=== PATIENT | female | born 1940 | race Caucasian/White ===

== ENCOUNTER 2017-10-13 09:30 | Inpatient (IN) | payer MEDICARE, BC ==
[2017-10-16] MEDS ORDERED: ACETAMINOPHEN 1,000 MG/100 ML BTL IV ONE (06:00)
[2017-10-16] MEDS ORDERED: VANCOMYCIN HCL 1,000 MG in DEXTROSE 5 % IN WATER 250 ML IVPB ONE ×2 (06:00)
[2017-10-16] MEDS ORDERED: FAMOTIDINE 20MG TABLET PO ONE (06:00)
[2017-10-16] MEDS ORDERED: MECLIZINE 25 MG TABLET PO ONE (06:00)
[2017-10-16] MEDS ORDERED: CELECOXIB 100 MG CAPSULE PO ONE (06:00)
[2017-10-16] MEDS ORDERED: METOCLOPRAMIDE 10 MG TABLET PO ONE (06:00)
[2017-11-20] MEDS ORDERED: METOCLOPRAMIDE 10 MG TABLET PO ONE (06:00)
[2017-11-20] MEDS ORDERED: CELECOXIB 100 MG CAPSULE PO ONE (06:00)
[2017-11-20] MEDS ORDERED: FAMOTIDINE 20MG TABLET PO ONE (06:00)
[2017-11-20] MEDS ORDERED: MECLIZINE 25 MG TABLET PO ONE (06:00)
[2017-11-20] MEDS ORDERED: CEFAZOLIN 2 Gram 2 GM/50 ML BAG IVPB PRN (06:00)
[2017-11-20] MEDS ORDERED: VANCOMYCIN HCL 1,000 MG in DEXTROSE 5 % IN WATER 250 ML IVPB ONE ×2 (06:00)
[2017-11-20] MEDS ORDERED: ACETAMINOPHEN 1,000 MG/100 ML BTL IV ONE (06:00)
[2017-11-20] MEDS ORDERED: DIPHENHYDRAMINE HCL 25 MG CAPSULE PO PRN (12:05)
[2017-11-20] MEDS ORDERED: HYDROCODONE/APAP 7.5/325MG TABLET PO PRN (12:05)
[2017-11-20] MEDS ORDERED: HYDROMORPHONE HCL 2 MG/ML VIAL IM PRN ×2 (12:05)
[2017-11-20] MEDS ORDERED: AL HYDROX/MAG HYDROX 30ML UD PO PRN (12:05)
[2017-11-20] MEDS ORDERED: ZOLPIDEM TARTRATE 5 MG TABLET PO PRN (12:05)
[2017-11-20] MEDS ORDERED: BISACODYL 10 MG SUPP RC PRN (12:05)
[2017-11-20] MEDS ORDERED: PROMETHAZINE HCL 12.5 MG in 0.9 % SODIUM CHLORIDE 100ML 50 ML IVPB PRN (12:05)
[2017-11-20] MEDS ORDERED: NALOXONE 0.4 MG/1 ML VIAL IVP PRN (12:05)
[2017-11-20] MEDS ORDERED: METOCLOPRAMIDE HCL 10 MG/2 ML VIAL IVP PRN (12:05)
[2017-11-20] MEDS ORDERED: TRAMADOL HCL 50 MG TABLET PO PRN ×2 (12:05)
[2017-11-20] MEDS ORDERED: MAGNESIUM HYDROXIDE 30 ML UDC PO PRN (12:05)
[2017-11-20] MEDS ORDERED: ACETAMINOPHEN W/ CODEINE 300MG/30MG TABLET PO PRN ×2 (12:05)
[2017-11-20] MEDS ORDERED: ACETAMINOPHEN 325 MG TAB PO PRN (12:05)
[2017-11-20] MEDS ORDERED: ONDANSETRON HCL IV 4 MG/2 ML VIAL IVP PRN (12:05)
[2017-11-20] MEDS ORDERED: ACETAMINOPHEN W/ CODEINE 300MG/60MG TABLET PO PRN ×2 (12:05)
[2017-11-20] MEDS ORDERED: KETOROLAC 30 MG/ML VIAL IVP PRN ×2 (12:05)
[2017-11-20] MEDS ORDERED: HYDROCODONE/APAP 5/325MG TABLET PO PRN ×2 (12:05)
[2017-11-20 13:32] LABS: ABO GROUP A; ANTIBODY SCREEN NEGATIVE (NEGATIVE); RH TYPE POSITIVE
[2017-11-20] MEDS ORDERED: BUPIVACAINE 0.5% W/EPI MPF 30 ML VIAL IVP ONE (14:00)
[2017-11-20] MEDS ORDERED: DESFLURANE 240 ML BTL INH ONE (14:00)
[2017-11-20] MEDS ORDERED: EPHEDRINE SULFATE 50 MG/ML ML IV ONE (14:00)
[2017-11-20] MEDS ORDERED: PHENYLEPHRINE HCL 10 MG/ML VIAL IVP ONE (14:00)
[2017-11-20] MEDS ORDERED: VANCOMYCIN HCL 1 GM VIAL IVPB ONE ×2 (14:00)
[2017-11-20] MEDS ORDERED: TRANEXAMIC ACID 1,000 MG/10 ML ML IV ONE ×2 (14:00)
[2017-11-20] MEDS ORDERED: PROPOFOL 10 MG/ML VIAL IV ONE (14:00)
[2017-11-20] MEDS ORDERED: LIDOCAINE 2% MDV (20MG/ML) 20ML VIAL IV ONE (14:00)
[2017-11-20] MEDS ORDERED: BUPIVACAINE LIPOSOME 266MG/20ML VIAL IV ONE (14:00)
[2017-11-20] MEDS ORDERED: FENTANYL PF 100MCG/2ML VIAL IV ONE (14:00)
[2017-11-20] MEDS ORDERED: PNEUM 13-VAL/PF 0.5 ML IM ONE (14:09)
[2017-11-20] MEDS ORDERED: ALBUTEROL HFA 8 GM INHALER INH PRN (15:29)
[2017-11-20] MEDS ORDERED: LORAZEPAM 0.5 MG TABLET PO PRN (15:30)
[2017-11-20] MEDS: HYDROCODONE/APAP 7.5/325MG TABLET PO PRN (16:41)
[2017-11-20] MEDS: DOCUSATE SODIUM 100 MG CAPSULE PO SCH (21:49)
[2017-11-20] MEDS: FERROUS SULFATE 325 MG TAB PO SCH (21:50)
[2017-11-20] MEDS ORDERED: PANTOPRAZOLE SODIUM 40 MG TABLET PO SCH (22:00)
[2017-11-20] MEDS ORDERED: DULOXETINE HCL 30 MG CAPSULE.DR PO SCH (22:00)
[2017-11-20] MEDS ORDERED: TRAZODONE 50 MG TABLET PO SCH (22:00)
[2017-11-20] MEDS: VANCOMYCIN HCL 1,000 MG in DEXTROSE 5 % IN WATER 250 ML IVPB SCH ×2 (22:43)
[2017-11-20] MEDS: DEXTROSE 5 % AND 0.9 % NACL 1,000 ML IV PRN (22:43)
[2017-11-21] MEDS: HYDROCODONE/APAP 7.5/325MG TABLET PO PRN ×2 (03:27→11:30)
[2017-11-21] MEDS: DEXTROSE 5 % AND 0.9 % NACL 1,000 ML IV PRN (05:48)
[2017-11-21 06:58] LABS: HEMATOCRIT 28.4 % (35.0-47.0); HEMOGLOBIN 8.4 gm/dl (11.6-16.0)
[2017-11-21] MEDS: FERROUS SULFATE 325 MG TAB PO SCH (09:30)
[2017-11-21] MEDS: DOCUSATE SODIUM 100 MG CAPSULE PO SCH (09:30)
[2017-11-21] MEDS ORDERED: RIVAROXABAN 20 MG TABLET PO SCH (10:00)
[2017-11-21] MEDS ORDERED: RIVAROXABAN 10 MG TABLET PO SCH (10:00)
[2017-11-21] MEDS ORDERED: DILTIAZEM 180MG CR CAPSULE PO SCH (10:00)
[2017-11-21] MEDS ORDERED: ATORVASTATIN 20 MG TABLET PO SCH (10:00)
[2017-11-21] MEDS ORDERED: CELECOXIB 100 MG CAPSULE PO SCH (10:00)
[2017-11-21] MEDS ORDERED: BREO (FLUTICASONE/VILANTEROL) 200MCG/25MCG INHALER INH SCH (10:00)
--- NOTE | 2017-11-21 10:19 | Rehab Evaluation ---
Patient Information - Patient Information Diagnosis: Right Hip OA Ordered Treatment: PT Evaluate and Treat Status: Initial Evaluation Surgery: Yes (R PIEDAD) Date of Surgery: 11/20/17 Past Medical/Surgical Hx: PAST MEDICAL/SURGICAL HISTORY Surgery to Affected Area? Yes Recent Surgery? Past Surgical History ORIF right hip kidney stone retreival c scope heart cath PMH - Respiratory Hx Respiratory Disorders Yes Hx Bronchitis Yes Hx Chronic Obstructive Yes: has inhaler nebulizer as needed Pulmonary Disease (COPD) Hx Dyspnea Yes Hx Pneumonia Yes Hx of SOB Yes Hx of Oxygen Therapy Yes: uses at night and occassionally during the day PMH - Cardiovascular Hx Cardiovascular Disorders Yes Hx Abnormal EKG Yes Hx Cardiac Catheterization Yes: 2017 possibly Hx Edema Yes Hx Hypertension Yes: on meds fair control Hx Irregular Heartbeat Yes: a fib Hx Pacemaker/Defibrillator Yes: pacemaker 10-16-17 Hx Rheumatic Fever Yes: as a child Exercise Tolerance Poor PMH - Neuro Hx Neurological Disorders Yes Hx Dizziness Yes: occassionally Hx Neuropathy Yes: right hand PMH - GI Hx Gastrointestinal Disorders Yes Hx Diverticulitis Yes Hx Gastroesophageal Reflux Yes PMH - Hx Genitourinary Disorders Yes Hx Kidney Stones Yes: hx of multiple PMH - Endocrine Hx Endocrine Disorders No PMH - Musculoskeletal Hx Musculoskeletal Disorders Yes Hx Arthritis Yes Hx Osteoporosis Yes PMH - Psych Hx Psychiatric Problems Yes Hx Anxiety Yes Hx Depression Yes PMH - Hematology/Oncology Hx Hematology/Oncology Yes Disorders Hx Bruising Yes: bruises easily on Xarelto Hx Cancer Yes: skin Premorbid Status: Detail (Patient was previously IND with all mobility and transfers) Social History: Detail (Patient lives in a one story home with her spouse. Patient has 2 steps to enter the home with a hand rail on the left side. She has a walk in shower with grab bars, and an elevated toilet with grab bars. She currently own a 4 wheeled walker and a cane.) Precautions: [place], Fall, Other (WBAT on R LE.) - Time With Patient Total Time Spent With Patient (Min): 30 Treatment Procedures: Detail (Initial evaluation, gait training, and exercise education.) Subjective Information - Subjective Information Per Patient (Patient was lying in bed upon arrival. Patient reports R hip and R heel pain but did not rate the pain on a 0-10 scale.) Objective Data - Pain Pain Present: Yes - Mental Status Patient Orientation: Oriented x3 - Visual Perception Appears within normal limits for therapeutic activities - ROM Not within normal limits (Patients R LE ROM is limited due to status post- surgery.) - Strength/Tone Not within normal limits (Limited due to status post-surgery. Strength is functional during gait.) - Bed Mobility Independent (Patient was IND with supine to and from sitting.) - Transfers Independent (Patient was IND with sit to stand and toilet transfers with elevated seat and use of grab bars.) - Balance Balance Sitting: Good Balance Standing: Good - Sensation Intact - Gait Detail (Patient ambulated 50' with a 4 wheeled walker and SBA with 2 standing rest breaks due to shortness of breath.) Therapy Assessment - Therapy Assessment Detail (Patient was IND with all mobility and transfers with SBA for safety. Feel patient will progress well with mobility with continued home PT.) Patient Education - Patient Education Teaching Topic: Exercise/Activity (Ankle pumps, glut sets, heel slides, quad sets, hamstring sets, and assissted supine hip abduction) Response: Return Demonstration, Verbalize Understanding Teaching Method: Demonstration, Audiovisual Teaching Recipient: Patient Barriers To Learning: Age Related Problem List - Problem List Physical Therapy Problem List: Detail (1) Limited R hip ROM 2) Limited R hip strength) Goals - Goals Physical Therapy Goals: 1) Patient will ambulate a flight of 3 stairs with a cane and hand rail with supervision assist. Prognosis - Prognosis Good Plan - Plan Physical Therapy Plan: Patient will be seen 1-2 more times for stair training. Patient will then be discharged to home PT.
[2017-11-21] MEDS: VANCOMYCIN HCL 1,000 MG in DEXTROSE 5 % IN WATER 250 ML IVPB SCH ×2 (11:26)
--- NOTE | 2017-11-21 13:32 | Physical Therapy Tx Note ---
Physical Therapy Tx Note - Treatment Note Tolerated: Good Total Time Spent With Patient: 30 Physical Therapy Tx Note: Detail (Patient was lying in bed upon arrival. Patient reported 8/10 R hip pain. Patient performed supine to sit transfer IND with a leg service officer. Patient ambulated 50' with a 4 wheeled walker and SBA for safety with 1 standing rest break due to shortness of breath. Patient ambulated a flight of 3 stairs with a standard cane and hand rail with SBA for safety. Patient reported feeling dizzy while descending the stairs and required a sitting rest break before going back up the steps. Patient was left lying in bed with call light in reach.) Physical Therapy Problem List: Detail (1) Limited R hip ROM 2) Limited R hip strength) Physical Therapy Goals: 1) Patient will ambulate a flight of 3 stairs with a cane and hand rail with supervision assist. (Goal Met) Prognosis: Good Physical Therapy Plan: Patient has met all IP PT goal and be discharged to home PT.
--- NOTE | 2017-11-21 15:21 | Rehab Evaluation ---
Patient Information - Patient Information Diagnosis: Right Hip OA Ordered Treatment: OT Evaluate and Treat Status: Initial Evaluation Surgery: Yes (R PIEDAD) Date of Surgery: 11/20/17 Past Medical/Surgical Hx: PAST MEDICAL/SURGICAL HISTORY Surgery to Affected Area? Yes Recent Surgery? Past Surgical History ORIF right hip kidney stone retreival c scope heart cath PMH - Respiratory Hx Respiratory Disorders Yes Hx Bronchitis Yes Hx Chronic Obstructive Yes: has inhaler nebulizer as needed Pulmonary Disease (COPD) Hx Dyspnea Yes Hx Pneumonia Yes Hx of SOB Yes Hx of Oxygen Therapy Yes: uses at night and occassionally during the day PMH - Cardiovascular Hx Cardiovascular Disorders Yes Hx Abnormal EKG Yes Hx Cardiac Catheterization Yes: 2017 possibly Hx Edema Yes Hx Hypertension Yes: on meds fair control Hx Irregular Heartbeat Yes: a fib Hx Pacemaker/Defibrillator Yes: pacemaker 10-16-17 Hx Rheumatic Fever Yes: as a child Exercise Tolerance Poor PMH - Neuro Hx Neurological Disorders Yes Hx Dizziness Yes: occassionally Hx Neuropathy Yes: right hand PMH - GI Hx Gastrointestinal Disorders Yes Hx Diverticulitis Yes Hx Gastroesophageal Reflux Yes PMH - Hx Genitourinary Disorders Yes Hx Kidney Stones Yes: hx of multiple PMH - Endocrine Hx Endocrine Disorders No PMH - Musculoskeletal Hx Musculoskeletal Disorders Yes Hx Arthritis Yes Hx Osteoporosis Yes PMH - Psych Hx Psychiatric Problems Yes Hx Anxiety Yes Hx Depression Yes PMH - Hematology/Oncology Hx Hematology/Oncology Yes Disorders Hx Bruising Yes: bruises easily on Xarelto Hx Cancer Yes: skin Premorbid Status: Detail (Pt. reported she was previously Ind with all self- care skills and driving. does most of the meal prep/cooking.) Social History: Detail (Patient lives in a one story home with her spouse. Patient has 2 steps to enter the home with a hand rail on the left side. She has a walk in shower with grab bars and shower chair, and an elevated toilet with grab bars. She currently own a 4 wheeled walker and a cane. She has no AE.) Precautions: [place], Fall, Other (WBAT on R LE. Hip precautions) - Time With Patient Total Time Spent With Patient (Min): 40 Treatment Procedures: Detail (OT Eval Low. Session was concluded with pt. seated EOB, and call light within reach. Nursing staff were present to address wound care.) Subjective Information - Subjective Information Per Patient (Pt. recently had a recent pacemaker sx and is on 10 lb. lift restrictions and is not to lift LUE over head. Pt. stated she uses 2 liters of 02 at night and as needed at home.) Objective Data - Mental Status Patient Orientation: Oriented x3 - Visual Perception Appears within normal limits for therapeutic activities - ROM Not within normal limits (LUE NT d/t pacemaker contraindications. RUE WFL.) - Strength/Tone Not within normal limits (LUE NT d/t pacemaker contraindications. RUE shd flex 4 -/5, abd 4/5, biceps 4/5, triceps 3+/5. Pt. stated she has no difficulties with functional activities w/ her current level of strength.) - Coordination Appears within normal limits for therapeutic activities - Bed Mobility Dependent (Pt. stated she sleeps in a recliner at home. Required modified Ind. with use of bed rail and HOB raised 90 degrees.) - Transfers Independent (modified Ind sit<>stand from EOB to walker.) - Balance Balance Sitting: Good Balance Standing: Fair - Sensation Intact (RUE light touch intact all fingertips. pt. reported she gets numbness in her R hand on occasion. Educ was provided in adaptive strategies to prevent numbness with use of walker and cane.) - ADL's/IADL's Detail (Educ. was provided in adaptive dressing techniques, hip kit AE, and application of hip precautions to ADL's. Pt. was unable to recall all hip precautions, so they were reviewed and repeated frequently. Pt. wanted to try getting dressed her typical method, but was unable to while adhering to hip precautions. Pt. demo. ability to don elastic waist pants and doff socks using cross country truck driver, although she had some difficulty squeezing the cross country truck driver. Pt. declined to try using sock aid. Pt. stated she does not have any equipment at home and was unsure if she wanted to purchase at this time. Resources were given of where she might purchase. Later, pt. purchased a sock aid from us. Pt. stated her would assist with whatever else she needed, and she would "learn to manage" at home.) Therapy Assessment - Therapy Assessment Detail (in-pt OT services not needed. Pt. would benefit from in-home OT eval and tx to maximize safety and independence with application of hip precautions. Pt. has assistance if needed (), and is aware of AE and adaptive strategies. Forest Manager and long handled sponge was recommended but pt. declined at this time.) Patient Education - Patient Education Teaching Topic: Equipment Use (hip kit (cross country truck driver, sock aid, long handled shoe horn and sponge); adaptive dressing strategies), Precautions (hip precautions w / application to ADL's) Response: Return Demonstration, Reinforcement Needed (frequent repetition throughout session), Verbalize Understanding Teaching Method: Discussion, Demonstration Teaching Recipient: Patient Barriers To Learning: Auditory ([place] and hearing aids not available), Cultural ( pt prefers to assist instead of using equipment) Problem List - Problem List Physical Therapy Problem List: Detail (1) Limited R hip ROM 2) Limited R hip strength) Goals - Goals Physical Therapy Goals: 1) Patient will ambulate a flight of 3 stairs with a cane and hand rail with supervision assist. (Goal Met) Prognosis - Prognosis Good (if pt. complies with precautions) Plan - Plan Physical Therapy Plan: Patient has met all IP PT goal and be discharged to home PT. Occupational Therapy Plan: d/c from in pt OT services. Educ. was provided to call rehab dept. if pt has Q's.
--- NOTE | 2017-11-22 21:43 | Operative Note ---
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 PROCEDURE : 1. Hardware removal with screws x3. 2. Total hip arthroplasty. SURGEON: Ovidio Gamble M.D. ANESTHESIA: Spinal. COMPLICATIONS: None. BLOOD LOSS: 200 mL. 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 COMPONENTS PLACED: 2 gram Vancomycin, [employer] cemented Synergy total hip arthroplasty system size 15 high-offset collared with a 52 mm three-hole reflection acetabular component with two screw caps, a centrally threaded screw cap, and one 40 mm acetabular screw, and a 35 degree high crosslinked polyethylene liner. INDICATIONS FOR OPERATION: This is a 77-year-old female who is well known to myself. She is over three months status post percutaneous screw fixation of a femoral neck fracture and we've watched progressive collapse in varus. She has had persistent unremitting pain and it has obviously never healed and I offered to proceed with total hip arthroplasty with removal of the screws. She wished to proceed as soon as possible. I explained the risks and benefits to her in detail for her diagnosis and procedures including but not limited to infection, nerve injury, vessel injury, persistent pain, persistent numbness and tingling in her hip, periprosthetic fracture, need for resection arthroplasty should the components become infected or loosened, nerve injury, vessel injury, blood clot , need for anticoagulation to prevent blood clots and risks associated with these medications, and need for further procedures and all of her questions were answered. Rehab and course were outlined and she agreed to proceed. PROCEDURE: The patient was brought to the O.R. and placed in the left lateral decubitus position. Her right hip and lower extremity were prepped and draped in the usual sterile fashion, prepped again with ChloraPrep after it was draped. Intraoperative time-out was performed. Next, a posterior approach was marked over the hip. It was infiltrated with 0.5 % Marcaine with Epinephrine. Using the incision marking template, the skin and subcutaneous tissues were dissected down to the gluteal fascia. The gluteal fascia was split longitudinally. The subgluteal plane was bluntly dissected. This was significantly scarred and caught around the protruding screw heads. We elevated scar, released it and removed it from the screw heads and we had good subgluteal dissection now. We placed our self-retainer and identified the sciatic nerve and this was carefully protected at all times. We released the short external rotators and released the capsule. Again, there was about the same amount of scarring here and the femoral head dislocated without difficulty. It was in complete varus collapse, 90 degrees to the femoral neck/shaft angle and mobile, obviously nonunion. We removed it easily with an osteotome at the fracture interval. Next, we inserted the boxed osteotome and trimmed the femoral neck area with a saw. We started reaming by hand with an 8 mm reamer, working in 1 mm increments to a size 15. We stopped here, broached to 13, broached to 14 and still a fairly loose fit. We broached to 15 and had decent fit and we plan on cementing obviously here. Again in 15 degrees of anteversion, we calcar planed. Attention was turned to the acetabulum. We released the capsule anteriorly, placed the inferior acetabular retractor and resected the scarred labrum and capsule around the periphery to get adequate exposure of the acetabulum. Next we started reaming in 1 mm increments in 45 degrees of inclination and 20 degrees of anteversion until we reamed up to a size 50 reamer. It was still somewhat loose. We trialed a 52 and the 52 actually trialed nicely. We didn't want to ream anymore and didn't want to medialize any more because we were running out of medial wall. Next, we irrigated copiously. We impacted down the real three-hole acetabular shell with a helicopter guide, again in 45 of inclination and 20 degrees of anteversion. We verified this was seated flush medially. We drilled the posterior central superior quadrant screw hole and inserted that screw without difficulty and had excellent purchase. We placed bone graft in the medial wall as well with some of the shavings. Next, then we placed the trial liner and did a trial reduction. The best combination for range of motion, stability, and leg lengths was with a high- offset 32 +0 mm femoral head component. This allowed for good tight abductor tensioning without overstuffing. Flexion to 90, internal rotation to 80 before the hip dislocated. Stability with extension in external rotation and symmetric leg lengths and these were the sizes we used. Next, we removed all trial components and irrigated copiously with pulse lavage and antibiotic solution. We placed the two screw caps and the centrally threaded screw cap in the acetabular shell and then impacted down the real acetabular liner with the funez in the posterior superior quadrant. Next, we placed a cement plug in the femoral canal. Irrigated copiously with pulse lavage and antibiotic solution. We inserted the suction catheter and injected the cement with third generation cement technique. We removed the suction catheter and then inserted the femoral stem with the centralizer until it was flush with the medial calcar in 15 degrees of anteversion and held it there until the cement hardened. We cleaned and dried the trunnion and impacted down the real femoral head component. We re-reduced the hip. Final range of motion revealed the same. We irrigated copiously. We closed the gluteal fascia with running #2 Quill suture. Irrigated again. We injected our 0.5% Marcaine with Epinephrine and 2 grams of tranexamic acid and Exparel mixture throughout deep to the capsule to superficial, gluteal, and subcutaneous. We closed the skin with 2-0 Vicryl and Acticoat and standard dressing was applied, to be changed tomorrow prior to discharge to SAV dressing. cc: Dr. Vel Emanuel JOB NUMBER: [id number] MTDD
--- NOTE | 2017-11-24 07:55 | RADIOLOGY REPORT ---
EXAM: RIGHT HIP HISTORY: POSTOP RIGHT PIEDAD TODAY. TECHNIQUE: A single AP view of the right hip were obtained. Comparison: None. FINDINGS: The patient is postop right PIEDAD. The components appear in good position. No dislocation evident in the AP projection. Air is seen about the right hip and upper right thigh which is all presumably postoperative in nature. IMPRESSION: POSTOP RIGHT PIEDAD WITH THE COMPONENTS APPEARING IN GOOD POSITION. JOB NUMBER: [id number] MTDD
== END 2017-11-21 15:50 | disposition home health service (06) | DRG 470 ==
LOC: MEDSURG 11-20 10:30 → UNDOADMIN 11-20 10:30 → MEDSURG 11-20 19:43
PROVIDERS: ADMIT Orthopaedic Surgery; ATTEND Orthopaedic Surgery
PROC: 0SR9069 Replacement of Right Hip Joint with Oxidized Zirconium on Polyethylene Synthetic Substitute, Cemented, Open Approach (ICD-10-PCS; principal; 2017-11-20 13:00)
DX: S72.001S Fracture of unspecified part of neck of right femur, sequela (principal); Z47.2 Encounter for removal of internal fixation device; I48.91 Unspecified atrial fibrillation; Z79.01 Long term (current) use of anticoagulants; J44.9 Chronic obstructive pulmonary disease, unspecified; E78.00 Pure hypercholesterolemia, unspecified; R60.9 Edema, unspecified; F17.210 Nicotine dependence, cigarettes, uncomplicated
CPT/HCPCS: 85014; 85018; 86850; 86900; 86901; 94640; 97110; C1776; J2370; J7042; J7060